=== PATIENT | male | born 1985 | race Caucasian/White ===

== ENCOUNTER 2020-10-22 15:13 | Emergency (ER) | payer SELFPAY ==
[2020-10-22 15:13] VITALS: BP 115/72; PULSE 105; RESP 22; TEMP 37.2; O2SAT 98; BMI 51.7
--- NOTE | 2020-10-22 16:22 | HMH.EDWEAK ---
ED Disposition Clinical Impression: Dehydration Heat exposure Qualifiers: Encounter type: initial encounter Qualified Code(s): T67.9XXA - Effect of heat and light, unspecified, initial encounter Disposition: Home, Self-Care Condition on Discharge: Good Instructions: DI for Dehydration -- Adult Additional Instructions: Follow-up with primary care provider in 2 to 3 days for reevaluation. Stay well-hydrated drinking plenty of noncaffeinated fluids. Avoid any exposure of tobacco to your skin as this can cause significant nicotine poisoning. - Critical Care Critical Care Time: No Attestation: On 10/22/20, the high probability of a clinically significant, sudden or life threatening deterioration of the following system(s) required my full and direct attention, intervention and personal management. The time I documented below is in addition to time spent performing reported procedures but includes the following listed in this critical care notation. Medical Decision Making - Medical Records Medical records reviewed: Yes: I reviewed the patient's medical records. - Jason Inquiry Pt receiving controlled substance: No Vital Signs: 10/22/20 15:13 Temperature 99 F Temperature Source Oral Pulse Rate [Radial] 105 H Respiratory Rate 22 Blood Pressure [Right Arm] 115/72 Blood Pressure Mean [Right Arm] 86 Blood Pressure Position [Right Arm] Sitting 02 Sat by Pulse Oximetry 98 Oxygen Delivery Method Room Air - Lab Data Lab results reviewed: Yes: I reviewed the patient's lab results. Lab Results 10/22/20 15:49: WBC 11.8 H, RBC 5.81, Hgb 17.1, Hct 50.1, MCV 86.2, MCH 29.4, MCHC 34.1, RDW 14.4, Plt Count 201, MPV 8.5, Neut % (Auto) 65.4, Lymph % (Auto) 26.0, [place] % (Auto) 6.3, Eos % (Auto) 1.1, Baso % (Auto) 1.1, Neut # (Auto) 7.7, Lymph # (Auto) 3.1, [place] # (Auto) 0.7, Eos # (Auto) 0.1, Baso # (Auto) 0.1 10/22/20 15:49: Sodium 143, Potassium 3.7, Chloride 107, Carbon Dioxide 23, BUN 17, Creatinine 1.50 H, Estimated Creat Clear 64, Estimated GFR 53 L, Est GFR ( Amer) 64, Glucose 110 H, Calcium 10.3 H Result diagrams: 10/22/20 15:49 10/22/20 15:49 Orders (Tests/Meds): ED MEDICATIONS Generic Name Dose Route Start Last Admin Trade Name Matthew PRN Reason Stop Dose Admin Sodium Chloride 1,000 mls @ 999 mls/hr 10/22/20 16:00 10/22/20 15:57 Sod Chlor 0.9% 1000ml Bag IV 10/22/20 17:00 999 mls/hr .Q1H1M WILL Administration ORDERS Category Date Time Status BMP [Basic Metabolic Panel] Stat Lab 10/22/20 15:49 Results Medical Decision Narrative: Patient working with tobacco all day, was wearing gloves, but possible of increased nicotine exposure from working with tobacco. He is slightly tachycardic, given a liter of fluids and is feeling much better. Heart rate improved with fluids as well. No signs of nicotine overdose at this time. Labs reassuring. Discharged home. Weakness HPI - General Chief complaint: Weakness Stated complaint: overheated Time Seen by Provider: 10/22/20 16:22 Mode of Arrival: Ambulatory Source of Information: Patient Limitations: No Limitations Description of Symptoms (Recalled from ER Triage Doc. 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 DENIES ANY LOC - History of Present Illness HPI Narrative: This is a 35-year-old male with no significant past medical history presents to the emergency department feeling lightheaded and hot after working in the sun all day with tobacco. He was wearing gloves. No chest pain or shortness of breath. No urinary symptoms. He denies any pain. No other exacerbating or alleviating factors. No vomiting diarrhea. - Related Data Allergies Allergy/AdvReac Type Severity Reaction Status Date / Time No Known Allergies Allergy Unverified 02/28/17 14:18 [facility] History - Hepatitis A Screen Drug use history?: No High risk sexual behavio
[2020-10-22 16:39] LABS: Basophils # 0.1 K/mm3 (0-0.2); Basophils % 1.1 % (0.1-2.0); Chloride 107 mmol/L (98-107); Eosinophils # 0.1 K/mm3 (0.0-0.4); Eosinophils % 1.1 % (0.1-12.0); Hematocrit 50.1 % (42.0-52.0); Hemoglobin 17.1 g/dL (14.1-18.0); Lymphocytes # 3.1 K/mm3 (0.7-4.5); Mean Corpuscular HGB Conc 34.1 g/dL (31.8-35.4); Mean Corpuscular Hemoglobin 29.4 pg (27.0-31.2); Mean Corpuscular Volume 86.2 fl (80-94); Mean Platelet Volume 8.5 fl (7.4-10.4); Monocytes # 0.7 K/mm3 (0.1-1.0); Monocytes % 6.3 % (1.7-9.3); Neutrophils # 7.7 K/mm3 (1.8-7.8); Neutrophils % 65.4 % (37.0-80.0); Platelet Count 201 K/mm3 (142-424); Potassium 3.7 mmoL/L (3.5-5.1); Red Blood Count 5.81 M/mm3 (4.60-6.20); Red Cell Distribution Width 14.4 % (11.5-17.5); Sodium 143 mmol/L (136-145); White Blood Count 11.8 K/mm3 (4.8-10.8)
[2020-10-22 16:42] LABS: Blood Urea Nitrogen 17 mg/dl (9-20); Calcium 10.3 mg/dl (8.4-10.2); Carbon Dioxide 23 mmol/L (22.0-30.0); Creatinine Clearance Estimated 64 mL/min (50-200); Estimated Glomerular Filt Rate 53 ml/min (>60); GFR (African American) 64 ML/MIN (>60); Glucose 110 mg/dl (74-100)
[2020-10-22 16:54] LABS: Anion Gap 16.7 mEq/L (5-15)
[2020-10-22 17:03] VITALS: BP 132/71; PULSE 67; RESP 18; TEMP 36.7; O2SAT 98
== END 2020-10-22 17:03 | disposition home or self-care (01) ==
PROVIDERS: Emergency Provider Emergency Medicine
DX: E86.0 Dehydration (principal); T67.9XXA Effect of heat and light, unspecified, initial encounter; T65.291A Toxic effect of other tobacco and nicotine, accidental (unintentional), initial encounter
CPT/HCPCS: 80048; 85025; 96365; 99282

== ENCOUNTER 2022-09-17 09:08 | Emergency (ER) | payer OTHER, SELFPAY ==
--- NOTE | 2022-09-17 09:11 | XR_ITS ---
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 Views: 3 views. COMPARISON: CR [id number] ANKLE-LT-3 VIEWS 09/28/2016 4:35 PM FINDINGS: Bones/joints: Normal. Soft tissues: Normal. IMPRESSION: No acute findings.
[2022-09-17 09:15] VITALS: BP 157/93; PULSE 84; RESP 18; TEMP 37.1; O2SAT 99; BMI 42.5
--- NOTE | 2022-09-17 09:59 | EXP.UTC ---
Discharge Plan Referrals Follow up/Referrals: Provider,Referral, MD [Primary Care Provider] - See instructions Activity Restrictions/Add. Instructions Additional Instructions/Restrictions: Weight bearing as tolerated rest Ice with cold pack for 20 minutes remove may repeat for comfort every hour Meng wrap for support and swelling no less in the shower. Be sure not too tight but not to lose either Elevate with leg Ibuprofen every 6 hours as needed for pain or inflammation. If needs something more you can take Tylenol every 4 hours as needed as long as her primary care has told he was okayed for you to take both. If improving any do not need to follow-up you can bring begin exercising 2-3 weeks after injury. Follow-up immediately if new or worsening symptoms or no noticeable improvement over the next 3-5 days. call ortho if no improvement Clinical Impressions Clinical Impression: Left knee sprain Instructions Patient Instructions: DI for Knee Sprain Discharge ED Provider: Fransisca ([facility])Soila [facility] [place] HPI General Stated complaint: AO@work 09/16 1300 LT knee pain Mode of Arrival: Ambulatory Source of Information: Patient Limitations: No Limitations Time Seen by Provider: 09/17/22 10:00 Description of Symptoms (Recalled from Triage Doc. by RN): PATIENT C/O PAIN TO LEFT KNEE AFTER TWISTING IT WHILE TOPPING TOBACCO YESTERDAY HEENT Symptoms (Recalled from RN notes): No Resp Symptoms (Recalled from RN notes): No Skin Symptoms (Recalled from RN notes): No MS Symptoms (Recalled from RN notes): Yes Functional Status (Recalled from RN notes): WNL History of Present Illness Provider Complaint: 36 yr old male presents for left knee pain. pt states he was topping tobacco yesterday, stepped and twisted knee and heard a pop. Related Data Allergies Allergy/AdvReac Type Severity Reaction Status Date / Time No Known Allergies Allergy Verified 09/17/22 09:24 Worker's Comp Is this a Worker's Comp case?: No [facility] Disclaimer: The information contained in this section may have been updated after the patient was seen, as this information can be updated by other users. 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) Smoking Status: Unknown if ever smoked alcohol intake: current current occupational status: employed Travel in the last 8 weeks: None ROS Obtained: Yes All systems reviewed & no additional complaints except as documented Constitutional Constitutional: Reports system reviewed and no additional complaints, except as documented Eyes Eyes: Reports system reviewed and no additional complaints, except as documented ENT Ears, Nose, Mouth, and Throat: Reports system reviewed and no additional complaints, except as documented Cardiovascular Cardiovascular: Reports system reviewed and no additional complaints, except as documented Respiratory Respiratory: Reports system reviewed and no additional complaints, except as documented Gastrointestinal Gastrointestingal: Reports system reviewed and no additional complaints, except as documented Musculoskeletal Musculoskeletal: Reports system reviewed and no additional complaints, except as documented, Reports as per HPI, Reports arthralgias and Reports joint swelling Integumentary/Breasts Skin/Breast: Reports system reviewed and no additional complaints, except as documented Neurologic Neurologic: Reports system reviewed and no additional complaints, except as documented Hematologic/Lymphatic Henatologic/Lymphatic: Reports system reviewed and no additional complaints, except as documented Allergic/Immunologic Allergic/Immunologic: Reports system reviewed and no additional complaints, except as documented Physical Exam General General appearance: alert and in no apparent distress Head Head exam: atraumatic Eye Eye exam: Present normal appearance and PERRL ENT ENT exam: Present normal exam Neck Neck exam: Present normal inspection Respiratory Respirato
[2022-09-17 10:01] VITALS: BP 157/93; PULSE 84; RESP 18; TEMP 37.1; O2SAT 99
== END 2022-09-17 10:18 | disposition home or self-care (01) ==
LOC: UTC 09:15
PROVIDERS: Emergency Provider Nurse Practitioner Family
DX: S83.92XA Sprain of unspecified site of left knee, initial encounter (principal); X50.1XXA Overexertion from prolonged static or awkward postures, initial encounter
CPT/HCPCS: 73562; 99203; 99212; G0463